=== PATIENT | female | born 1990 | race African-American/Black ===

== ENCOUNTER 2018-01-16 21:34 | Emergency (ER) | payer SELFPAY ==
[2018-01-16 21:41] VITALS: BMI 33.7
[2018-01-17] MEDS ORDERED: TORADOL 60 MG VIAL IM ONE (00:01)
[2018-01-17] MEDS ORDERED: TORADOL 60 MG VIAL ONE (00:02)
--- NOTE | 2018-01-17 00:05 | DR.GENAD ---
HPI - PCP Primary Care Physician: NFD - Complaint/Symptoms Chief Complaint Doctors Comments: Patient states that she was playing soft ball and was hit by the ball. Her right foot is swollen Chief Complaint:: PT STATES" I WAS HIT IN THE ANKLE WITH A SOFTBALL TONIGHT IT' S SWELLING AND PAINFUL" - Source History Provided: Patient - Mode of Arrival Mode of Arrival: Wheelchair - Timing Onset of Chief Complaint: 01/16/18 PMH - PMH Past Medical History: No Past Surgical History: Yes Past Surgical History Comment: SHOULDER LT - Family History History of Family Medical Conditions: Yes Family Medical History: Diabetes Mellitus, Coronary Artery Disease, Hypertension - Social History Does patient currently use any type of tobacco product: No Have you used tobacco products in the last 12 months: No Type of Tobacco Use: None Does any household member use tobacco: No Alcohol Use: None Do you use any recreational Drugs:: No Lives With: Family Lives Where: Home - infectious screening In the last 2 months have you had wt loss of >10#?: NO Have you had fever, night sweats or hemotysis?: No Have you traveled outside the country in the last 6 months?: No Isolation: Standard ROS - Review of Systems Eyes: No Symptoms Reported ENTM: No Symptoms Reported Respiratoy: No Symptoms Reported Cardiovascular: No Symptoms Reported Gastrointestinal/Abdominal: No Symptoms Reported Genitourinary: No Symptoms Reported Neurological: No Symptoms Reported PE - Vital Signs Vitals: Temperature 98.4 F Pulse Rate 85 Respiratory Rate 18 Blood Pressure 110/72 O2 Sat by Pulse Oximetry 100 - General General Appearance: Alert, In No Apparent Distress - Head Head Exam: Normal Inspection, Atraumatic - Eyes Eye exam: Normal Appearance, PERRL, EOMI - ENT ENT Exam: Normal Exam External Ear Exam: Normal External Inspection TM/Canal Exam: Bilateral Normal Nose Exam: Normal Nose Exam Mouth Exam: Normal Inspection Throat Exam: Normal Inspection - Neck Neck Exam: Normal Inspection - Chest Chest Inspection: Normal Inspection - Respiratory Respiratory Exam: Normal Lung Sounds Bilat Respiratory Exam: Bilateral Clear to Auscultation - Cardiovascular Cardiovascular Exam: Regular Rate, Normal Rhythm - Abdominal Exam Abdominal Exam: Normal Inspection, Normal Bowel Sounds Abdominal Tenderness: negative: RUQ, RLQ, LUQ, LLQ, Epigastrium, Suprapubic, Diffuse, Mild, Moderate, Severe, Other - Extremities Extremities Exam: Normal Inspection, Edema (right ankle: No acute fracture. Lateral ankle soft tissue swelling suggest contusion or sequela of ankle sprain. ) ROR - XRAY XRAY Interpreted by: Radiologist (No acute fracture.) - Diagnosis Discharge Problem: Contusion of ankle, right Qualifiers: Encounter type: initial encounter Qualified Code(s): S90.01XA - Contusion of right ankle, initial encounter - Discharge Plan Condition: Stable - Follow ups/Referrals Follow ups/Referrals: NFD,None [Primary Care Provider] - 3 days - Instructions
--- NOTE | 2018-01-17 00:25 | RAD ---
Right ankle three views Indication: Softball injury Findings: There is lateral ankle soft tissue swelling. Tibiotalar joint is intact. There is no cortic al lucency or malalignment Impression: No acute fracture. Lateral ankle soft tissue swelling suggest contusion or sequela of ank le sprain Reported By:
[2018-01-17 01:28] VITALS: BP 122/74
== END 2018-01-17 00:52 | disposition home or self-care (01) ==
LOC: ER 21:44
DX: S90.01XA Contusion of right ankle, initial encounter (principal); Y93.64 Activity, baseball; Y92.89 Other specified places as the place of occurrence of the external cause
CPT/HCPCS: 29540; 73610; 99282; J1885